=== PATIENT | female | born 1960 | race African-American/Black ===

== ENCOUNTER 2024-09-22 14:40 | Observation (INO) | payer OTHER ==
[2024-09-22 15:59] LABS: INR 0.86 (0.83-1.09); PROTHROMBIN TIME (PATIENT) 9.9 SEC (9.7-13.0)
[2024-09-22 16:06] LABS: BASO % 0.3 % (0-2.0); EOS % 0.5 % (0-4.5); HEMOGLOBIN 13.6 GM/dL (10.7-15.3); LYMPH % 34.1 % (8-40); MCH 32.3 pg (25.7-33.7); MCHC 33.1 g/dl (32.0-36.0); MEAN CELL VOLUME 97.4 fl (80-96); MEAN PLT VOLUME 7.7 fl (7.5-11.1); MONO % 6.6 % (3.8-10.2); NEUT % 58.5 % (42.8-82.8); PLATELET COUNT 391 10^3/uL (134-434); RBC 4.21 M/mm3 (3.60-5.2); RDW 12.7 % (11.6-15.6); WHITE BLOOD COUNT 8.2 K/mm3 (4.0-10.0)
[2024-09-22] MEDS: SODIUM CHLORIDE 1,000 ML IV SCH (16:13)
[2024-09-22 16:14] LABS: POTASSIUM 4.6 mmol/L (3.5-5.1)
[2024-09-22 16:16] LABS: ALBUMIN 3.1 g/dl (3.4-5.0); CALCIUM 9.3 mg/dL (8.5-10.1)
[2024-09-22 16:17] LABS: BLOOD UREA NITROGEN 9.2 mg/dL (7-18)
[2024-09-22 16:19] LABS: CREATININE 0.6 mg/dL (0.55-1.3)
[2024-09-22 16:21] LABS: TOT PROT 6.6 g/dl (6.4-8.2)
[2024-09-22 16:22] LABS: BILIRUBIN,TOTAL 0.3 mg/dL (0.2-1)
[2024-09-22 19:34] LABS: PH,URINE 8.5 (5.0-8.0); URINE APPEARANCE CLEAR; URINE BILIRUBIN NEGATIVE (NEGATIVE); URINE COLOR YELLOW; URINE GLUCOSE (UA) 2+ (NEGATIVE); URINE KETONE NEGATIVE (NEGATIVE); URINE PROTEIN TRACE (NEGATIVE)
[2024-09-22 19:35] LABS: URINE LEUK ESTERASE N (NEGATIVE); URINE NITRITE NEGATIVE (NEGATIVE)
[2024-09-22] MEDS ORDERED: INSULIN ASPART SLIDING SCALE (NOVOLOG) 1 VIAL SQ SCH (22:15)
[2024-09-22] MEDS ORDERED: INSULIN ASPART SLIDING SCALE (NOVOLOG) 1 VIAL SQ ONE (22:21)
[2024-09-22] MEDS: INSULIN (NOVOLOG) ASPART 100 UNITS/ML 10ML VIAL SQ ONE (22:30)
[2024-09-23] MEDS ORDERED: INSULIN ASPART SLIDING SCALE (NOVOLOG) 1 VIAL SQ ONE ×2 (01:27→01:28)
[2024-09-23] MEDS: INSULIN (NOVOLOG) ASPART 100 UNITS/ML 10ML VIAL SQ ONE ×2 (01:38→22:54)
[2024-09-23 02:55] VITALS: BMI 26.0
[2024-09-23] MEDS: hydrALAZINE HCL 50 MG TABLET (FP) PO SCH (06:30)
[2024-09-23] MEDS: INSULIN ASPART SLIDING SCALE (NOVOLOG) 1 VIAL SQ SCH (06:31)
[2024-09-23 08:39] LABS: BASO % 0.7 % (0-2.0); EOS % 0.8 % (0-4.5); HEMATOCRIT 36.1 % (32.4-45.2); HEMOGLOBIN 12.1 GM/dL (10.7-15.3); LYMPH % 44.3 % (8-40); MCH 32.7 pg (25.7-33.7); MCHC 33.6 g/dl (32.0-36.0); MEAN CELL VOLUME 97.4 fl (80-96); MEAN PLT VOLUME 8.1 fl (7.5-11.1); MONO % 6.6 % (3.8-10.2); NEUT % 47.6 % (42.8-82.8); PLATELET COUNT 347 10^3/uL (134-434); RDW 12.9 % (11.6-15.6); WHITE BLOOD COUNT 9.1 K/mm3 (4.0-10.0)
[2024-09-23 08:54] LABS: POTASSIUM 4.4 mmol/L (3.5-5.1)
[2024-09-23 08:57] LABS: ALBUMIN 2.7 g/dl (3.4-5.0); CALCIUM 8.4 mg/dL (8.5-10.1)
[2024-09-23 08:58] LABS: BLOOD UREA NITROGEN 14.8 mg/dL (7-18); MAGNESIUM 1.8 mg/dL (1.8-2.4)
[2024-09-23 09:01] LABS: CREATININE 0.6 mg/dL (0.55-1.3); PHOSPHOROUS 4.6 mg/dL (2.5-4.9)
[2024-09-23 09:02] LABS: BILIRUBIN,TOTAL 0.3 mg/dL (0.2-1); TOT PROT 5.3 g/dl (6.4-8.2)
[2024-09-23] MEDS: ENOXAPARIN NA (PORCINE) 40 MG/0.4 ML DISP.SYRIN SQ SCH (09:56)
[2024-09-23] MEDS: metoPROLOL SUCCINATE 25 MG TAB.SR.24H (FP) PO SCH (09:56)
[2024-09-23] MEDS: ASPIRIN 81 MG CHEWABLE TABLETS PO SCH (09:56)
[2024-09-23] MEDS: LISINOPRIL 20 MG TABLET PO SCH (21:05)
[2024-09-23] MEDS: ATORVASTATIN CA 40 MG TABLET (FP) PO SCH (21:05)
[2024-09-23] MEDS: INSULIN (LEVEMIR) 100 UNITS/ML UNITS SQ SCH (21:05)
[2024-09-23] MEDS: CLOPIDOGREL BISULFATE 75 MG TABLET (FP) PO SCH (21:53)
[2024-09-24 01:11] VITALS: RESP 18
[2024-09-24 13:02] VITALS: BP 96/57; PULSE 97; TEMP 97.9
== END 2024-09-24 11:50 | disposition home or self-care (01) ==
LOC: JER 14:40 → JERBED 17:49 → J4S 09-23 01:51
PROVIDERS: ADMIT Internal Medicine; ATTEND Registered Nurse
PROC: HZ31ZZZ Individual Counseling for Substance Abuse Treatment, Behavioral (ICD-10-PCS; principal; 2024-09-22)
PROC: 3E013VG Introduction of Insulin into Subcutaneous Tissue, Percutaneous Approach (ICD-10-PCS; 2024-09-22)
PROC: 3E0337Z Introduction of Electrolytic and Water Balance Substance into Peripheral Vein, Percutaneous Approach (ICD-10-PCS; 2024-09-22)
PROC: 3E013GC Introduction of Other Therapeutic Substance into Subcutaneous Tissue, Percutaneous Approach (ICD-10-PCS; 2024-09-22)
DX: G45.9 Transient cerebral ischemic attack, unspecified (principal); I63.81 Other cerebral infarction due to occlusion or stenosis of small artery; I10 Essential (primary) hypertension; E11.9 Type 2 diabetes mellitus without complications; G61.81 Chronic inflammatory demyelinating polyneuritis; F17.200 Nicotine dependence, unspecified, uncomplicated; G62.89 Other specified polyneuropathies; R53.1 Weakness; Z79.4 Long term (current) use of insulin
CPT/HCPCS: 36415; 70450-TC; 70496-TC; 70498-TC; 70551-TC; 80053; 80061; 81003; 82550; 82962; 83036; 83735; 84100; 84439; 84443; 84484; 85025; 85610; 85730; 86850; 86900; 86901; 93005; 93010; 93306-TC; 93970-TC; 97116-GP; 97161-GP; 99285-25; G0378

== ENCOUNTER 2025-05-31 13:51 | Emergency (ER) | payer OTHER ==
[2025-05-31 14:00] VITALS: BMI 26.0
[2025-05-31 15:00] LABS: MCHC 32.8 g/dl (32.2-35.5); MEAN CELL VOLUME 95.3 fl (79.4-94.8); MEAN PLT VOLUME 9.2 fl (9.4-12.3); RDW 12.8 % (12.4-16.4)
[2025-05-31 15:15] LABS: GLUCOSE,RANDOM 489 mg/dL (74-106); TOT PROT 6.3 g/dl (6.4-8.2)
[2025-05-31 15:16] LABS: CO2 26 mmol/L (21-32)
[2025-05-31 15:18] LABS: ALK PHOS 68 U/L (40-150)
[2025-05-31 15:20] LABS: SGPT/ALT 20 U/L (0-55)
[2025-05-31 15:21] LABS: CREATININE 0.60 mg/dL (0.55-1.3); SGOT/AST 25 U/L (5-34)
[2025-05-31] MEDS ORDERED: ACETAMINOPHEN INJECTION 100 ML ONE (15:27)
[2025-05-31] MEDS: ACETAMINOPHEN 1000 MG/100 ML BAG IVPB ONE (15:29)
[2025-05-31] MEDS: SODIUM CHLORIDE 0.9% 500 ML INFUS.BAG IV ONE (15:29)
[2025-05-31 15:41] LABS: HCV DIAGNOSTIC IN-HOUSE W/RFLX NON-REACTIVE (NONREACTIVE); HIV INTERPRETATION NEGATIVE (NEGATIVE)
[2025-05-31] MEDS ORDERED: INSULIN ASPART SLIDING SCALE (NOVOLOG) 1 VIAL SQ ONE (18:21)
[2025-05-31] MEDS: INSULIN (NOVOLOG) ASPART 100 UNITS/ML 10ML VIAL SQ ONE (18:40)
[2025-05-31 19:25] VITALS: BP 177/89; PULSE 89; RESP 19; TEMP 98.6
== END 2025-05-31 18:55 | disposition home or self-care (01) ==
LOC: JER 13:51
PROC: 3E033NZ Introduction of Analgesics, Hypnotics, Sedatives into Peripheral Vein, Percutaneous Approach (ICD-10-PCS; principal; 2025-05-31)
PROC: 3E013VG Introduction of Insulin into Subcutaneous Tissue, Percutaneous Approach (ICD-10-PCS; 2025-05-31)
DX: G44.89 Other headache syndrome (principal); R20.2 Paresthesia of skin; R20.0 Anesthesia of skin; R29.898 Other symptoms and signs involving the musculoskeletal system; E11.65 Type 2 diabetes mellitus with hyperglycemia
CPT/HCPCS: 36415; 70450-TC; 70496-TC; 70498-TC; 80053; 82962; 83735; 85027; 86803; 87389; 93005; 93010; 99285-25